=== PATIENT | female | born 1995 | race Caucasian/White ===

== ENCOUNTER 2017-10-17 20:19 | Emergency (ER) | payer OTHER ==
[~2017-10-17] VITALS: Ht 177.8 cm; Wt 81.6 kg
--- NOTE | 2017-10-17 20:23 | ER Report ---
History and Physical Time Seen By MD: 20:22 HPI/ROS CHIEF COMPLAINT: Dysuria, hematuria HISTORY OF PRESENT ILLNESS: 22-year-old otherwise healthy non female presents with dysuria and frequency onset on Wednesday 4 days ago the progressed to dysuria and right flank pain today. Pain is described as mild aches and cramps similar to menstrual cramping. She denies vaginal bleeding or discharge. Denies chance of . Vomited once last night after drinking 3 beers per does not she related to that level alcohol. No fevers chills vomiting or diarrhea otherwise. No other concerns or complaints. She has had UTI before. Denies nausea or pain at this time REVIEW OF SYSTEMS: Constitutional: No fever, no chills. Eyes: No discharge. ENT: No sore throat. Cardiovascular: No chest pain, no palpitations. Respiratory: No cough, no shortness of breath. Gastrointestinal: No abdominal pain, no vomiting. Genitourinary: Otherwise negative Musculoskeletal: No back pain. Skin: No rashes. Neurological: No headache. Allergies: Coded Allergies: Penicillins (Verified Allergy, Unknown, 10/17/17) amoxicillin (Verified Allergy, Unknown, 10/17/17) pineapple (Verified Allergy, Unknown, 10/17/17) Home Meds No Active Prescriptions or Reported Meds Constitutional Vital Sign - Last 24 Hours 10/17/17 10/17/17 10/17/17 10/17/17 20:25 20:27 20:34 20:49 Temp 98.9 Pulse 124 104 128 Resp 20 B/P (MAP) 151/106 (121) 151/106 Pulse Ox 97 83 96 O2 Delivery Room Air 10/17/17 10/17/17 10/17/17 21:04 21:34 21:41 Pulse 103 105 85 Resp 16 B/P (MAP) 130/82 (98) Pulse Ox 95 95 92 O2 Delivery Room Air Physical Exam General Appearance: The patient is alert, has no immediate need for airway protection and no signs of toxicity. [ ] Eyes: Pupils equal and round no pallor or injection. ENT, Mouth: Mucous membranes are moist. Respiratory: There are no retractions, lungs are clear to auscultation. Cardiovascular: Regular rate and rhythm. [ ] Gastrointestinal: Abdomen is soft and mild, diffuse tenderness right sided, no masses, bowel sounds normal. Neurological: Normal Skin: Warm and dry, no rashes. Musculoskeletal: Neck is supple non tender. Extremities are nontender, nonswollen and have full range of motion. No edema DIFFERENTIAL DIAGNOSIS: After history and physical exam differential diagnosis was considered for UTI, pyelonephritis, incidental , ectopic , appendicitis, Medical Decision Making Data Points Result Diagram: 10/17/17203910/17/172039 Laboratory Hematology Test 10/17/17 20:40 Red Blood Count 5.90 M/uL (4.17-5.56) Mean Corpuscular Volume 87.0 fL (80.0-96.0) Mean Corpuscular Hemoglobin 28.9 pg (26.0-33.0) Mean Corpuscular Hemoglobin Concent 33.2 g/dL (32.0-36.0) Red Cell Distribution Width 13.3 % (11.5-14.5) Mean Platelet Volume 8.8 fL (7.2-11.1) Neutrophils (%) (Auto) 78.3 % (39.4-72.5) Lymphocytes (%) (Auto) 11.8 % (17.6-49.6) Monocytes (%) (Auto) 8.6 % (4.1-12.4) Eosinophils (%) (Auto) 0.9 % (0.4-6.7) Basophils (%) (Auto) 0.4 % (0.3-1.4) Nucleated RBC Relative Count (auto) 0.0 /100WBC Neutrophils # (Auto) 13.2 K/uL (2.0-7.4) Lymphocytes # (Auto) 2.0 K/uL (1.3-3.6) Monocytes # (Auto) 1.5 K/uL (0.3-1.0) Eosinophils # (Auto) 0.2 K/uL (0.0-0.5) Basophils # (Auto) 0.1 K/uL (0.0-0.1) Nucleated RBC Absolute Count (auto) 0.00 K/uL Urine Color Yellow Urine Clarity Cloudy Urine pH 6.0 pH (4.8-9.5) Urine Specific [place] 1.008 Urine Protein 30 mg/dL (NEGATIVE) Urine Glucose (UA) Negative mg/dL (NEGATIVE) Urine Ketones Negative mg/dL (NEGATIVE) Urine Blood Large (NEGATIVE) Urine Nitrite Negative (NEGATIVE) Urine Bilirubin Negative (NEGATIVE) Urine Urobilinogen Negative mg/dL (0.2-1.9) Urine Leukocyte Esterase Large (NEGATIVE) Urine RBC 36 /HPF (0-2/HPF) Urine WBC 186 /HPF (0-5/HPF) Urine WBC Clumps Mod /HPF Urine Squamous Epithelial Cells None /LPF (</=FEW) Urine Bacteria Many /HPF (NONE-FEW) Urine Mucus None /HPF (NONE-FEW) Urine HCG, Qualitative Negative (NEGATIVE) Sodium Level 137 mmol/L (137-145) Potassium Level 4.0 mmol/L (3.5-5.0) Chloride Level 100 mmol/L (98-107) Carbon Dioxide Level 24 mmol/L (22-31) Blood Urea Nitrogen 10 mg/dl (7-18) Creatinine 0.90 mg/dl (0.52-1.04) Glomerular Filtration Rate Calc > 60.0 Random Glucose 104 mg/dl (75-110) Calcium Level 9.6 mg/dl (8.4-10.2) Total Bilirubin 0.7 mg/dl (0.2-1.3) Aspartate Amino Transf (AST/SGOT) 20 U/L (0-35) Alanine Aminotransferase (ALT/SGPT) 32 U/L (0-56) Alkaline Phosphatase 82 U/L (0-126) Total Protein 7.3 gm/dl (6.3-8.2) Albumin 4.0 g/dl (3.5-5.0) Chemistry Test 10/17/17 20:40 White Blood Count 16.9 k/uL (4.5-11.0) Red Blood Count 5.90 M/uL (4.17-5.56) Hemoglobin 17.1 g/dL (12.0-16.0) Hematocrit 51.4 % (34.0-47.0) Mean Corpuscular Volume 87.0 fL (80.0-96.0) Mean Corpuscular Hemoglobin 28.9 pg (26.0-33.0) Mean Corpuscular Hemoglobin Concent 33.2 g/dL (32.0-36.0) Red Cell Distribution Width 13.3 % (11.5-14.5) Platelet Count 291 K/uL (150-450) Mean Platelet Volume 8.8 fL (7.2-11.1) Neutrophils (%) (Auto) 78.3 % (39.4-72.5) Lymphocytes (%) (Auto) 11.8 % (17.6-49.6) Monocytes (%) (Auto) 8.6 % (4.1-12.4) Eosinophils (%) (Auto) 0.9 % (0.4-6.7) Basophils (%) (Auto) 0.4 % (0.3-1.4) Nucleated RBC Relative Count (auto) 0.0 /100WBC Neutrophils # (Auto) 13.2 K/uL (2.0-7.4) Lymphocytes # (Auto) 2.0 K/uL (1.3-3.6) Monocytes # (Auto) 1.5 K/uL (0.3-1.0) Eosinophils # (Auto) 0.2 K/uL (0.0-0.5) Basophils # (Auto) 0.1 K/uL (0.0-0.1) Nucleated RBC Absolute Count (auto) 0.00 K/uL Urine Color Yellow Urine Clarity Cloudy Urine pH 6.0 pH (4.8-9.5) Urine Specific [place] 1.008 Urine Protein 30 mg/dL (NEGATIVE) Urine Glucose (UA) Negative mg/dL (NEGATIVE) Urine Ketones Negative mg/dL (NEGATIVE) Urine Blood Large (NEGATIVE) Urine Nitrite Negative (NEGATIVE) Urine Bilirubin Negative (NEGATIVE) Urine Urobilinogen Negative mg/dL (0.2-1.9) Urine Leukocyte Esterase Large (NEGATIVE) Urine RBC 36 /HPF (0-2/HPF) Urine WBC 186 /HPF (0-5/HPF) Urine WBC Clumps Mod /HPF Urine Squamous Epithelial Cells None /LPF (</=FEW) Urine Bacteria Many /HPF (NONE-FEW) Urine Mucus None /HPF (NONE-FEW) Urine HCG, Qualitative Negative (NEGATIVE) Glomerular Filtration Rate Calc > 60.0 Calcium Level 9.6 mg/dl (8.4-10.2) Total Bilirubin 0.7 mg/dl (0.2-1.3) Aspartate Amino Transf (AST/SGOT) 20 U/L (0-35) Alanine Aminotransferase (ALT/SGPT) 32 U/L (0-56) Alkaline Phosphatase 82 U/L (0-126) Total Protein 7.3 gm/dl (6.3-8.2) Albumin 4.0 g/dl (3.5-5.0) Urinalysis Test 10/17/17 20:40 Urine Color Yellow Urine Clarity Cloudy Urine pH 6.0 pH (4.8-9.5) Urine Specific [place] 1.008 Urine Protein 30 mg/dL (NEGATIVE) Urine Glucose (UA) Negative mg/dL (NEGATIVE) Urine Ketones Negative mg/dL (NEGATIVE) Urine Blood Large (NEGATIVE) Urine Nitrite Negative (NEGATIVE) Urine Bilirubin Negative (NEGATIVE) Urine Urobilinogen Negative mg/dL (0.2-1.9) Urine Leukocyte Esterase Large (NEGATIVE) Urine RBC 36 /HPF (0-2/HPF) Urine WBC 186 /HPF (0-5/HPF) Urine WBC Clumps Mod /HPF Urine Squamous Epithelial Cells None /LPF (</=FEW) Urine Bacteria Many /HPF (NONE-FEW) Urine Mucus None /HPF (NONE-FEW) Urine HCG, Qualitative Negative (NEGATIVE) ED Course/Re-evaluation ED Course Plan of care discussed and agreed upon prior to orders placed. A urine sample has been obtained. Re-evaluation Patient experiencing nausea oral Zofran ODT ordered. Given pain pattern and elevated white blood cell count of offered her IM injection of Rocephin after explaining the risks and benefits given her allergy to penicillins and low cross -reactivity. She has agreed to this plan of care. At this time we anticipate discharge. Decision to Disposition Date: Oct 17, 2017 Decision to Disposition Time: 22:42 Depart Departure Latest Vital Signs Vital Signs Date Time Temp Pulse Resp B/P (MAP) Pulse Ox O2 Delivery O2 Flow Rate FiO2 10/17/17 21:41 85 16 130/82 (98) 92 Room Air 10/17/17 20:27 98.9 Impression: Primary Impression: Urinary tract infection Condition: Improved Disposition: HOME OR SELF-CARE New Scripts Ondansetron (ZOFRAN ODT) 4 Mg Tab.rapdis 4 MG PO Q6H for 7 Days, #28 TAB.DESIRAE Prov: HARDEEP GALVEZ MD 10/17/17 Nitrofurantoin Monohyd/M-Cryst (MACROBID 100 MG CAPSULE) 100 Mg Capsule 100 MG PO BID for 10 Days, #20 CAPSULE Prov: HARDEEP GALVEZ MD 10/17/17 Patient Instructions: Urinary Tract Infection in Children (ED) Exam Respiratory Exam: Clear Cardiovascular Exam: RRR SBP Drop > 40 mmHg from Baseli: No Capillary Refill: Less than 2 Seconds Peripheral Pulse: Strong Skin Exam: Unremarkable Date Exam Occurred: Oct 17, 2017 Time Exam Occurred: 22:43 HARDEEP GALVEZ MD Oct 17, 2017 20:22
[2017-10-17 20:47] LABS: PLATELET COUNT, AUTOMATED 291 K/uL (150-450)
[2017-10-17] MEDS ORDERED: NITROFURANTOIN MONO 100 MG PO ONE ×2 (22:10→22:15)
[2017-10-17] MEDS ORDERED: ONDANSETRON 4 MG ODT TABDP SL ONE (22:10)
[2017-10-17] MEDS ORDERED: ONDANSETRON 4 MG ODT TH SL ONE (22:15)
[2017-10-17] MEDS ORDERED: cefTRIAXone 1 GM VIAL IM ONE (22:20)
[2017-10-17] MEDS ORDERED: LIDOCAINE 1% MDV 200 MG/20 ML INJ ONE (22:20)
[2017-10-17] MEDS ORDERED: ONDA4TAB PO (22:42)
[2017-10-17] MEDS ORDERED: NITR-105 PO (22:42)
[2017-10-17 22:45] VITALS: BP 138/82
== END 2017-10-17 22:51 | disposition home or self-care (01) ==
LOC: ER 20:37
DX: N39.0 Urinary tract infection, site not specified (principal)
CPT/HCPCS: 36415; 81001; 81025; 85025; 96372; 99284; J0696; J2001; S0119; 82040; 82247; 82310; 82374; 82435; 82565; 82947; 84075; 84132; 84155; 84295; 84450; 84460; 84520